=== PATIENT | male | born 1960 | race Caucasian/White ===

== ENCOUNTER 2020-05-16 13:42 | Outpatient (CLI) | payer MEDICAID | END 2020-05-16 23:59 | disposition home or self-care (01) | LOC: CARD DIAG 13:42 | PROVIDERS: ATTEND General Practice | DX: I08.8 Other rheumatic multiple valve diseases (principal) | CPT/HCPCS: 93306 ==

== ENCOUNTER 2023-12-17 16:03 | Emergency (ER) | payer MEDICAID ==
[~2023-12-17] VITALS: Ht 177.8 cm; Wt 42.0 kg
[2023-12-17 16:13] VITALS: BP 114/72; PULSE 78; RESP 20; TEMP 98.4; O2SAT 95
== END 2023-12-17 17:36 | disposition left against medical advice (07) ==
LOC: ER 16:03
DX: R20.0 Anesthesia of skin (principal); R20.2 Paresthesia of skin; E86.0 Dehydration; Z53.21 Procedure and treatment not carried out due to patient leaving prior to being seen by health care provider

== ENCOUNTER 2024-11-15 15:34 | Outpatient (CLI) | payer MEDICAID ==
--- NOTE | 2024-11-15 19:06 | RADIOLOGY REPORT ---
RENAL ULTRASOUND CLINICAL HISTORY: URINARY RETENTION TECHNIQUE: Multiple grayscale ultrasound images were obtained through the kidneys and urinary bladder . COMPARISON: None FINDINGS: Right kidney: Measures 9.0 x 3.5 x 4.0 cm. No hydronephrosis. Left kidney: Measures 9.7 x 4.7 x 5.1 cm. No hydronephrosis. Urinary bladder: Unremarkable. Prevoid volume is 21 mL and postvoid volume is 4.2 mL bilateral ureter al jets are seen. IMPRESSION: Lower limits of normal-sized kidneys without evidence of hydronephrosis.
== END 2024-11-15 23:59 | disposition home or self-care (01) ==
LOC: US 15:34
PROVIDERS: ATTEND Surgery
DX: R33.9 Retention of urine, unspecified (principal)
CPT/HCPCS: 76770